=== PATIENT | female | born 1960 | race Caucasian/White ===

== ENCOUNTER → 2016-09-26 | Outpatient (CLI) | payer SELFPAY ==
[2015-03-28 11:51] VITALS: BP 104/57
[2016-09-26 08:38] LABS: BASOPHILS % (AUTO) 0.3 % (0.2-1.0); EOSINOPHILS # (AUTO) 0.2 x10^3/uL (0.0-0.2); EOSINOPHILS % (AUTO) 3.4 % (0.9-2.9); HEMATOCRIT 42.9 % (36.0-47.0); HEMOGLOBIN 14.3 g/dL (12.0-16.0); LYMPHOCYTES % (AUTO) 30.8 % (21.0-51.0); MEAN CORPUSCULAR HEMOGLOBIN 29.6 pg (27.0-34.0); MEAN CORPUSCULAR HGB CONC 33.3 g/dL (33.0-35.0); MEAN CORPUSCULAR VOLUME 89.1 fL (80.0-100.0); MEAN PLATELET VOLUME 10.4 fL (7.4-11.0); MONOCYTES # (AUTO) 0.6 x10^3/uL (0.3-0.8); MONOCYTES % (AUTO) 8.6 % (0.0-13.0); NEUTROPHILS # (AUTO) 3.7 x10^3/uL (2.2-4.8); NEUTROPHILS % (AUTO) 56.9 % (42.0-75.0); PLATELET COUNT 154 X10^3/uL (150.0-450.0); RED BLOOD COUNT 4.81 X10^6/uL (3.5-5.4); RED CELL DISTRIBUTION WIDTH 13.6 % (11.6-16.5); WHITE BLOOD COUNT 6.4 X10^3/uL (3.6-10.0)
[2016-09-26 08:39] LABS: BILIRUBIN,URINE NEGATIVE (NEGATIVE); BLOOD/HEMOGLOBIN,URINE 1+ (NEGATIVE); GLUCOSE, URINE NEGATIVE (NEGATIVE); KETONES,URINE NEGATIVE (NEGATIVE); LEUKOCYTE ESTERASE ,URINE NEGATIVE (NEGATIVE); NITRITES,URINE NEGATIVE (NEGATIVE); PROTEIN,URINE 1+ (NEGATIVE); UROBILINOGEN,URINE NORMAL (NORMAL)
[2016-09-26 08:53] LABS: APPEARANCE,URINE CLEAR (CLEAR); BACTERIA,URINE NEGATIVE /HPF (NEGATIVE); COLOR,URINE YELLOW (YELLOW); RBC,URINE 0-3 /HPF (NEGATIVE); SQUAMOUS EPITHELIAL CELL,UR FEW /HPF (NEGATIVE)
[2016-09-26 08:54] LABS: MUCUS,URINE FEW /HPF (NEGATIVE)
[2016-09-26 09:17] LABS: ALANINE AMINOTRANSFERASE 26 Units/L (12-78); ALBUMIN 3.7 g/dL (3.4-5.0); ALKALINE PHOSPHATASE 122 Units/L (46-116); ASPARTATE AMINO TRANSFERASE 21 Units/L (15-37); BLOOD UREA NITROGEN 20 mg/dL (7-18); CALCIUM 8.4 mg/dL (8.5-10.1); CARBON DIOXIDE 28.4 mmol/L (21-32); CHLORIDE 106 mmol/L (98-107); CHOL/HDL RATIO 3.2 (0.0-5.0); CHOLESTEROL 141 mg/dL (0-200); CREATININE 0.75 mg/dL (0.55-1.02); FREE T4 (FREE THYROXINE) 1.14 ng/dL (0.76-1.46); GLUCOSE 99 mg/dL (65-99); HDL CHOLESTEROL 44 mg/dL (40-60); SODIUM 141 mmol/L (136-145); TRIGLYCERIDES 72 mg/dL (0-150); TSH (3RD GENERATION) 1.583 uIU/mL (0.358-3.74); eGFR BLACK RACES > 60 (>60); eGFR NON BLACK RACES > 60 (>60)
== END ==
LOC: LAB 07:58
PROVIDERS: ATTEND Family Medicine
DX: R53.83 Other fatigue (principal); I48.0 Paroxysmal atrial fibrillation; E78.00 Pure hypercholesterolemia, unspecified; R63.5 Abnormal weight gain; R20.2 Paresthesia of skin
CPT/HCPCS: 36415; 80053; 80061; 81001; 82607; 84439; 84443; 85025

== ENCOUNTER → 2016-09-30 | Outpatient (CLI) | payer SELFPAY ==
[2015-03-28 11:51] VITALS: BP 104/57
--- NOTE | 2016-09-30 11:50 | MG ---
Examination: Bilateral screening mammogram. Clinical history: Routine screening. Technique: Digital CC and MLO views of both breasts were obtained. Computer aided detection analysis was performed and used during the interpretation. Comparison: None available. Baseline mammogram. Findings: The breasts are composed of scattered fibroglandular densities. Benign-appearing calcifications are noted in the breasts bilaterally. No suspicious mass, area of architectural distortion or suspicious cluster of microcalcifications is noted. Impression: 1. No mammographic evidence of malignancy. BI-RADS category 2-benign findings. Recommend routine annual screening mammogram. Diagnostic CAD was utilized and reviewed. * 0 (ZERO) - ASSESSMENT INCOMPLETE; ADDITIONAL IMAGING IS NEEDED. * 0C - ASSESSMENT INCOMPLETE, NEEDS ADDITIONAL IMAGING EVALUATION AND/OR PRIOR MAMMOGRAMS FOR COMPAR RORY. * 1/1 (ONE) - NEGATIVE. * 2/II (TWO) - BENIGN FINDINGS. * 3/III (THREE) - PROBABLY BENIGN FINDING; SHORT INTERVAL FOLLOW-UP SUGGESTED. * 4/IV (FOUR) - SUSPICIOUS ABNORMALITY; BIOPSY SHOULD BE CONSIDERED. * 5/V - HIGHLY SUSPICIOUS OF MALIGNANCY; BIOPSY SHOULD BE PERFORMED. * 6/IV - KNOWN BIOPSY PROVEN MALIGNANCY-APPROPRIATE ACTION SHOULD BE TAKEN. A NEGATIVE X-RAY REPORT SHOULD NOT DELAY BIOPSY IF A DOMINANT OR CLINICALLY SUSPICIOUS MASS IS PRESENT; 4 TO 8 PERCENT OF CANCERS ARE NOT IDENTIFIED BY X-RAY. A NEGATIVE REPORT MAY REINFORCE THE CLINICAL IMPRESSION. ADENOSIS AND DENSE BREASTS MAY OBSCURE AN UNDERLYING NEOPLASM. Reported By:
== END ==
LOC: RAD 10:27
PROVIDERS: ATTEND Family Medicine
DX: Z12.31 Encounter for screening mammogram for malignant neoplasm of breast (principal)
CPT/HCPCS: 77067

== ENCOUNTER 2017-02-15 22:35 | Emergency (ER) | payer SELFPAY ==
[2017-02-15 22:52] VITALS: BP 144/69; BMI 29.8
--- NOTE | 2017-02-16 00:24 | DR.GENAD ---
HPI - PCP Primary Care Physician: JUVENAL DURAND - HPI Comment HPI Comment: Numb arms - Complaint/Symptoms Chief Complaint Doctors Comments: Numbness in RUE and now in LUE since this evening. She has pain in between her shoulders. This is not radiating. She denies Chest pain or nausea/vomitting. It felt as if she was having an anxiety attack. She was shaking and trembling. She took a dose of her anxiety medication (name forgotten now) and it didn't help. Chief Complaint:: " MY RIGHT ARM IS REALLY NUMB AND IM ON THE VERGE OF HAVING AN ANXITY ATTACK GEORGE CESPEDES TOOK MY MEDICINE FOR MY A FIB ALREADY TONIGHT BUT I JUST AINT FEELING RIGHT. RUBINA HAD A HEAD AND A REALLY DEEP DRY COUGH TODAY " - Nurses notes reviewed Nurses Notes Review: Yes - Source History Provided: Patient - Mode of Arrival Mode of Arrival: Ambulatory - Timing Onset of Chief Complaint: 02/15/17 Came on: Gradually - Severity Severity: Mild, Moderate - Modifying Factors Worsens:: none Improves:: none PMH - PMH Past Medical History: Yes Past Medical History: Anxiety, Depression Past Medical History Comment: A-FIB Past Surgical History: Yes Surgical History: Other - Family History History of Family Medical Conditions: Yes Family Medical History: MA - Social History Alcohol Use: None Do you use any recreational Drugs:: No Lives Where: Home - infectious screening Have you traveled outside the country in the last 6 months?: No ROS - Review of Systems Constitutional: No Symptoms Reported Eyes: No Symptoms Reported ENTM: No Symptoms Reported Respiratoy: Non-Productive Cough Cardiovascular: No Symptoms Reported Gastrointestinal/Abdominal: No Symptoms Reported Genitourinary: No Symptoms Reported Neurological: Anxiety, Headache Musculoskeletal: No Symptoms Reported, Other (mid thoracic pain) Integumentary: No Symptoms Reported Hematologic/Lymphatic: No Symptoms Reported Endocrine: No Symptoms Reported Psychiatric: Anxiety, Depression All Other Systems: Reviewed and Negative PE - Vital Signs Vitals: Temperature 97.9 F Pulse Rate 92 Respiratory Rate 18 Blood Pressure [Left Arm] 123/67 Blood Pressure 144/69 O2 Sat by Pulse Oximetry 100 - General Limitations: No Limitations General Appearance: Alert, In No Apparent Distress - Head Head Exam: Normal Inspection - Eyes Eye exam: Normal Appearance - ENT ENT Exam: Normal Exam External Ear Exam: Normal External Inspection TM/Canal Exam: Bilateral Normal Nose Exam: Normal Nose Exam Mouth Exam: Normal Inspection Throat Exam: Normal Inspection - Neck Neck Exam: Normal Inspection - Chest Chest Inspection: Normal Inspection - Respiratory Respiratory Exam: Normal Lung Sounds Bilat Respiratory Exam: Bilateral Clear to Auscultation - Cardiovascular Cardiovascular Exam: Regular Rate, Normal Rhythm - Abdominal Exam Abdominal Exam: Normal Inspection, Normal Bowel Sounds, Soft - Extremities Extremities Exam: Normal Inspection - Back Back Exam: Normal Inspection - Neurologic Neurological Exam: Alert, Oriented X3 - Psychiatric Psychiatric Exam: Normal Affect, Normal Mood - Skin Skin Exam: Warm, Dry, Intact, Normal Color Course - Reevaluation 1st: Improved - Education/Counseling Education/Counseling: Patient, Education, Counseling Educated On: Treatment, Prognosis, Needs for Follow Up ROR - Labs Reviewed Result Diagrams: 02/16/17 00:54 02/16/17 00:54 Laboratory: WBC 8.5 X10^3/uL (3.6-10.0) 02/16/17 00:54 RBC 4.64 X10^6/uL (3.5-5.4) 02/16/17 00:54 Hgb 14.2 g/dL (12.0-16.0) 02/16/17 00:54 Hct 41.7 % (36.0-47.0) 02/16/17 00:54 MCV 89.9 fL (80.0-100.0) 02/16/17 00:54 MCH 30.6 pg (27.0-34.0) 02/16/17 00:54 MCHC 34.1 g/dL (33.0-35.0) 02/16/17 00:54 RDW 13.6 % (11.6-16.5) 02/16/17 00:54 Plt Count 148 X10^3/uL (150.0-450.0) L 02/16/17 00:54 MPV 10.3 fL (7.4-11.0) 02/16/17 00:54 Neut % 78.5 % (42.0-75.0) H 02/16/17 00:54 Lymph % 12.3 % (21.0-51.0) L 02/16/17 00:54 [place] % 7.2 % (0.0-13.0) 02/16/17 00:54 Eos % 1.7 % (0.9-2.9) 02/16/17 00:54 Baso % 0.3 % (0.2-1.0) 02/16/17 00:54 Neut # 6.7 x10^3/uL (2.2-4.8) H 02/16/17 00:54 Lymph # 1.0 X10^3/uL (1.3-2.9) L 02/16/17 00:54 [place] # 0.6 x10^3/uL (0.3-0.8) 02/16/17 00:54 Eos # 0.1 x10^3/uL (0.0-0.2) 02/16/17 00:54 Baso # 0.0 X10^3/uL (0.0-0.1) 02/16/17 00:54 Absolute Nucleated RBC 0.0 /100WBC 02/16/17 00:54 D-Dimer < 100 ng/mL (0-400) 02/16/17 00:54 Sodium 143 mmol/L (136-145) 02/16/17 00:54 Corrected Sodium 143 mmol/L (136-145) 02/16/17 00:54 Potassium 4.1 mmol/L (3.5-5.1) 02/16/17 00:54 Chloride 108 mmol/L (98-107) H 02/16/17 00:54 Carbon Dioxide 28.2 mmol/L (21-32) 02/16/17 00:54 BUN 23 mg/dL (7-18) H 02/16/17 00:54 Creatinine 0.89 mg/dL (0.55-1.02) 02/16/17 00:54 Est GFR (MDRD) Af Amer > 60 (>60) 02/16/17 00:54 Est GFR (MDRD) Non-Af > 60 (>60) 02/16/17 00:54 Glucose 112 mg/dL (65-99) H 02/16/17 00:54 Calcium 8.6 mg/dL (8.5-10.1) 02/16/17 00:54 Corrected Calcium 9.2 mg/dL (8.5-10.1) 02/16/17 00:54 Total Bilirubin 0.40 mg/dL (0.2-1.0) 02/16/17 00:54 AST 23 Units/L (15-37) 02/16/17 00:54 ALT 28 Units/L (12-78) 02/16/17 00:54 Alkaline Phosphatase 118 Units/L (46-116) H 02/16/17 00:54 Creatine Kinase 241 Units/L (26-192) H 02/16/17 00:54 CK-MB (CK-2) 3.1 ng/mL (0-4.0) 02/16/17 00:54 CK/CKMB % Calc 1.3 % (<4) 02/16/17 00:54 Troponin I < 0.02 ng/mL (0-1.5) 02/16/17 00:54 Total Protein 7.6 g/dL (6.4-8.2) 02/16/17 00:54 Albumin 3.3 g/dL (3.4-5.0) L 02/16/17 00:54 Globulin 4.3 g/dL (2.5-4.5) 02/16/17 00:54 Albumin/Globulin Ratio 0.8 Ratio (1.1-2.1) L 02/16/17 00:54 - Other Results Comments: d-dimer: <100; CK: 241: CK-MB: 3.1; Troponin I: <0.02 - XRAY XRAY Interpreted by: Both XRAY Findings: normal CXR - EKG Rate: 71 Rhythm: Afib Block: IVCD - Diagnosis Discharge Problem: Paresthesia and pain of both upper extremities, Azotemia, Thrombocytopenia - Discharge Plan Disposition: 01 HOME, SELF-CARE Condition: Stable - Follow ups/Referrals Follow ups/Referrals: JUVENAL DURAND [Primary Care Provider] - 3 days - Instructions
[2017-02-16 01:02] LABS: BASOPHILS % (AUTO) 0.3 % (0.2-1.0); EOSINOPHILS # (AUTO) 0.1 x10^3/uL (0.0-0.2); EOSINOPHILS % (AUTO) 1.7 % (0.9-2.9); HEMATOCRIT 41.7 % (36.0-47.0); HEMOGLOBIN 14.2 g/dL (12.0-16.0); LYMPHOCYTES % (AUTO) 12.3 % (21.0-51.0); MEAN CORPUSCULAR HEMOGLOBIN 30.6 pg (27.0-34.0); MEAN CORPUSCULAR HGB CONC 34.1 g/dL (33.0-35.0); MEAN CORPUSCULAR VOLUME 89.9 fL (80.0-100.0); MEAN PLATELET VOLUME 10.3 fL (7.4-11.0); MONOCYTES # (AUTO) 0.6 x10^3/uL (0.3-0.8); MONOCYTES % (AUTO) 7.2 % (0.0-13.0); NEUTROPHILS # (AUTO) 6.7 x10^3/uL (2.2-4.8); NEUTROPHILS % (AUTO) 78.5 % (42.0-75.0); PLATELET COUNT 148 X10^3/uL (150.0-450.0); RED BLOOD COUNT 4.64 X10^6/uL (3.5-5.4); RED CELL DISTRIBUTION WIDTH 13.6 % (11.6-16.5); WHITE BLOOD COUNT 8.5 X10^3/uL (3.6-10.0)
[2017-02-16] MEDS ORDERED: NEURONTIN CAP 400 MG PO ONE (01:03)
[2017-02-16] MEDS ORDERED: ATIVAN TAB 1 MG PO ONE (01:03)
[2017-02-16] MEDS ORDERED: ATIVAN TAB 1 MG ONE (01:15)
[2017-02-16 01:17] LABS: BLOOD UREA NITROGEN 23 mg/dL (7-18); CALCIUM 8.6 mg/dL (8.5-10.1); CARBON DIOXIDE 28.2 mmol/L (21-32); CHLORIDE 108 mmol/L (98-107); COR NA(FOR HYPERGLY) 143 mmol/L (136-145); CREATININE 0.89 mg/dL (0.55-1.02); SODIUM 143 mmol/L (136-145); TROPONIN I < 0.02 ng/mL (0-1.5); eGFR BLACK RACES > 60 (>60); eGFR NON BLACK RACES > 60 (>60)
[2017-02-16 01:21] LABS: ALANINE AMINOTRANSFERASE 28 Units/L (12-78); ALBUMIN 3.3 g/dL (3.4-5.0); ALKALINE PHOSPHATASE 118 Units/L (46-116); ASPARTATE AMINO TRANSFERASE 23 Units/L (15-37); CKMB % 1.3 % (<4); COR CA(FOR HYPOALB) 9.2 mg/dL (8.5-10.1); CREATINE KINASE 241 Units/L (26-192); CREATINE KINASE MB 3.1 ng/mL (0-4.0); TOTAL PROTEIN 7.6 g/dL (6.4-8.2)
[2017-02-16 01:32] LABS: D DIMER < 100 ng/mL (0-400)
--- NOTE | 2017-02-16 03:01 | RAD ---
EXAM: Chest X-ray INDICATION: Chest pain COMPARISION: No prior TECHNIQUE: AP, single view FINDINGS: The lungs are clear in the lung volumes are within normal limits. No pleural effusion or pneumothorax . The cardiac silhouette and mediastinum are normal. The regional skeleton is intact. IMPRESSION: Normal Chest X-Ray Reported By:
== END 2017-02-16 03:17 | disposition home or self-care (01) ==
LOC: ER 22:35
DX: R20.8 Other disturbances of skin sensation (principal); R79.89 Other specified abnormal findings of blood chemistry; D69.6 Thrombocytopenia, unspecified; M79.601 Pain in right arm; M79.602 Pain in left arm
CPT/HCPCS: 36415; 71010; 80053; 82550; 82553; 84484; 85025; 85378; 93005; 93010; 99283